=== PATIENT | male | born 1945 | race Caucasian/White ===

== ENCOUNTER → 2021-01-23 16:11 | Outpatient (BNVA) | payer MEDICARE, SELFPAY | PROVIDERS: PCP Family Medicine; Visit Provider Family Medicine | DX: Z85.51 Personal history of malignant neoplasm of bladder (principal); K86.1 Other chronic pancreatitis; K21.00 Gastro-esophageal reflux disease with esophagitis, without bleeding; M79.11 Myalgia of mastication muscle; Z76.89 Persons encountering health services in other specified circumstances; Z68.29 Body mass index [BMI] 29.0-29.9, adult; Z71.89 Other specified counseling; Z12.5 Encounter for screening for malignant neoplasm of prostate | CPT/HCPCS: 80053; 80061; 84153; 85025; 85651 ==

== ENCOUNTER → 2022-04-02 12:42 | Outpatient (BNVA) | payer MEDICARE, SELFPAY | PROVIDERS: PCP Family Medicine; Visit Provider Family Medicine | DX: M35.3 Polymyalgia rheumatica (principal); M10.9 Gout, unspecified; N18.2 Chronic kidney disease, stage 2 (mild); K21.00 Gastro-esophageal reflux disease with esophagitis, without bleeding | CPT/HCPCS: 80053; 85025 ==

== ENCOUNTER → 2023-06-06 11:58 | Outpatient (BNVA) | payer MEDICARE, SELFPAY | PROVIDERS: PCP Family Medicine; Visit Provider Family Medicine | DX: R26.89 Other abnormalities of gait and mobility (principal); R53.1 Weakness; N18.2 Chronic kidney disease, stage 2 (mild); I65.23 Occlusion and stenosis of bilateral carotid arteries; E83.42 Hypomagnesemia; Z12.5 Encounter for screening for malignant neoplasm of prostate; M35.3 Polymyalgia rheumatica | CPT/HCPCS: 80053; 80061; 82533; 83735; 84439; 84443; 84550; 85025; G0103 ==